=== PATIENT | female | born 1980 | race Asian ===

== ENCOUNTER → 2022-03-10 | Outpatient (CLI) | payer BC ==
[~2022-03-10] MED LIST: PRENATAL VITAMI1 TA5 PO
== END ==
LOC: MC.RAD 14:21
DX: Z12.31 Encounter for screening mammogram for malignant neoplasm of breast (principal)

== ENCOUNTER → 2024-06-26 | Outpatient (CLI) | payer BC | LOC: MC.RAD 08:46 | DX: Z12.31 Encounter for screening mammogram for malignant neoplasm of breast (principal) ==